=== PATIENT | female | born 1980 | race Two or more races ===

== ENCOUNTER 2021-05-25 09:24 | Outpatient (REF) | payer OTHER, SELFPAY ==
--- NOTE | ~2021-05-25 | MM_ITS ---
EXAMINATION: MM SCREENING DIGITAL BREAST TOMOSYNTHESIS, BILATERAL CLINICAL INFORMATION: Screening. Asymptomatic. Age 40. No prior mammography. No known family history breast cancer. The lifetime risk of breast cancer based on the Tyrer-Cuzick Model is 13%. COMPARISON: None (current study represents initial baseline exam). TECHNIQUE: Digital breast tomosynthesis is performed in both the craniocaudal and mediolateral oblique views along with computer-aided detection (CAD). Synthesized 2D images are generated from the tomosynthesis. FINDINGS: The breasts are extremely dense, which lowers the sensitivity of mammography (ACR BI-RADS breast composition Category d). There are no significant masses, abnormal calcifications, or other abnormalities. The axilla and skin contours are unremarkable. MM/MM tomosynthesis screening BI IMPRESSION: No mammographic evidence of malignancy. ASSESSMENT: BI-RADS 1: Negative RECOMMENDATION: Routine annual mammography screening. This patient's information was entered into a reminder system with a target due date for their next mammogram.
== END 2021-05-25 09:25 | disposition home or self-care (01) ==
LOC: HO.MAMMO 09:24
PROVIDERS: Visit Provider Nurse Practitioner Family
DX: Z12.31 Encounter for screening mammogram for malignant neoplasm of breast (principal)
CPT/HCPCS: 77063; 77067

== ENCOUNTER 2023-08-23 13:50 | Outpatient (AMB) | payer OTHER, SELFPAY ==
[2023-08-23 13:55] VITALS: BP 136/84; BMI 26.1
--- NOTE | 2023-08-23 13:55 | MHC.OFFVIS ---
Intake Vital Signs 08/23/23 13:55 Height 5 ft 8 in Weight 172 lb BMI 26.1 BP 136/84 Intake Visit Reasons: Annual Intake Note: Concerns about cancer family hx. 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 She is using 's vasectomy for control and while she is happy with that part of it she has been noticing with great detail the emotional roller coaster she goes through with the menstrual cycle and for the last 10 days before her. She feels like she snaps very easily and cries at a sad song easily and wants to stop snapping at her children as quickly. She her periods last 4 days long they are like clockwork and she can tell when she is ovulating and when she is going to start going down the down side of the roller coaster additionally she is also a keenly aware of the up side of the roller coaster after her menses. On questioning she did have a Mirena in the past and she cannot recall any negative side effects from it Her mother was just diagnosed with stage III breast cancer so she wants to get screened. She does not think she has been seen since the pandemic. [facility] Medical History (Updated 08/23/23 @ 15:08 by Ella Dong CNM) History of ganglion cyst Low back pain Depression Anxiety Surgical History (Updated 08/23/23 @ 14:12 by HEAVENLY Ghosh) History of surgical removal of ganglion cyst [place] teeth removed Family History (Updated 08/23/23 @ 14:12 by HEAVENLY Ghosh) Mother Chronic mental illness Mental health disorder Breast cancer Maternal Grandmother Chronic mental illness Maternal Aunt Mental health disorder Cervical cancer Paternal Aunt Mental health disorder Father Mental health disorder Social History Housing: House Alcohol intake: never Patient Tobacco Use Status: Former Tobacco user e-Cigarette/Vaping Use: Currently Using Second Hand Smoke Exposure: No Patient : No service: No Current occupational status: employed Current occupation: [employer] Current occupational exposures/hazards: No Gender identity: Female Cognitive needs: No Hearing needs: No Vision needs: No Female Reproductive History Menstrual Age of Menarche: 10 Duration of menses: 3-5 days Date of last menstrual period: 08/11/23 control method: permanent sterilization Permanent Sterilization: Vasectomy Total pregnancies: 2 Full term: 2 Number of Living Children: 2 Date of last pap smear: 03/02/18 (negative) Date of Mammogram: 05/25/21 Physical Exam Vital Signs: Last Vital Signs BP 136/84 08/23/23 13:55 BMI result Body Mass Index 26.1 Const General: healthy appearing, comfortable, no acute distress, well developed and alert Nutritional Appearance: average body habitus Orientation/consciousness: patient oriented x3 Limitations: no limitations HEENT Head: Yes normocephalic Neck Neck: Yes normal visual inspection Chest Chest palpation & inspection: normal inspection of the chest Breast/axilla inspection: normal inspection of the breasts and normal inspection of the axillae Breast/axilla palpation: normal palpation of the breasts and normal palpation of the axillae Resp Effort & Inspection: normal respiratory effort GI Inspection: Yes normal to inspection, No Abdominal wall edema and No distended Palpation (GI): Soft to palpation and nontender Other: External exam within normal limits vagina pink and moist cervix multiparous pink moist with nabothian cyst friable with Pap very normal a healthy appearing clear and white mucus. Uterus small midposition to anteverted nontender mobile very good tone with Kegel. General: Yes bladder normal to palpation External Female Exam: normal external appearance and normal appearance of the urethra Speculum Exam - Vagina: normal appearance of the vagina, normal palpation and normal vaginal discharge Speculum Exam - Cervix: normal appearance of the cervix, normal palpation and nontender Bimanual exam- vagina & uterus: normal bimanual exam, normal palpation, uterine size normal, bladder normal to palpation, consistency normal, normal palpation, uterine mobility normal, uterine shape normal, No Cervical tenderness present, non-tender and no cervical motion tenderness Bimanual Exam- Adnexa, other: normal adnexae, no masses, normal and No adnexal tenderness Neuro General: patient oriented x3 Assessment & Plan Assessment & Plan (1) Well woman exam with routine gynecological exam: Code(s): Z01.419 - Encounter for gynecological examination (general) (routine) without abnormal findings (2) Screening for cervical cancer: Code(s): Z12.4 - Encounter for screening for malignant neoplasm of cervix (3) Screening for breast cancer: Code(s): Z12.39 - Encounter for other screening for malignant neoplasm of breast (4) Family history of breast cancer in first degree relative: Comment: Mom was just diagnosed with stage III breast cancer. Code(s): Z80.3 - Family history of malignant neoplasm of breast (5) Menstrual changes: Code(s): N92.6 - Irregular menstruation, unspecified Plan -----Discussed in this visit the following: healthy balanced diet, regular and consistent exercise, getting recommended health screens, doing the best she can for her particular health concerns, kegel exercises, pap smear screening and followup recommendations, mammography screening and SBE, normal changes in cycles in her life stage--- .Discussed the normal menstrual cycles, in terms of length of time for each part of the cycle, range of experiences for bleeding/periods, cramping and clots and the various ways of handling all of these including the various menstrual products available today and common use of non inflammatory medications such as ibuprofen to help with the cramping, and changes in vaginal and cervical discharge that occur throughout the changes in the menstrual cycle. Also discussed what is happening in the ovaries, with preparing to ovulate, ovulation, and what happens afterward as well. Discussed signs of ovulation including fertile appearing mucus, libido changes, breast changes, ovulatory pain and twinges, and the optimal /most risky times to become . Reviewed that menstrual cycles do not obey the printed calendar, but rather follow the body's own cycle discussed what can sometimes happen if the cycle is interrupted by other health events such as anovulatory cycles. Discussed other metabolic changes that have a very profound effect on menstrual cycles including weight and the increased hormones that occur in that setting. Reviewed how the Mirena works and its affect on menstrual cycles and menses and the other common changes that women sometimes notice on mood weight another subtle cyclic changes. Reviewed that 1 of the reasons we insert the Mirena at the beginning of the menses is because of the typical physiologic changes that happen with menses that allow for the cervix to be slightly softened and open a very tiny bit which allow for more easy insertion of the Mirena. 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 Discussed problems to watch for including any severe pain, fever, feeling of expulsion. Also discussed what to do if those occur.(call here or seek urgent care) Reviewed why we leave the strings about 3-4 centimetres long, so that they will curl around the cervix otherwise the sharper tip of the strings could be palpable and be uncomfortable. Additionally when they are cut too short it is not possible to remove the IUD in the future easily. Also discussed the initial recommendations to use the Mirena IUD for contraception for up to 5 years. Some recent studies are indicating that it can be used for longer and there are current recommendations saying it can be left for longer period of time when used for contraception, up to 8 years and it can be used for 5 years when it is being used to help control abnormal bleeding. However, many women, whose periods went away for the 1st few years of having the Mirena, have reported that around 4-1/2-5 years into its use, they have noticed return of full menses, and return of ovulatory signs and symptoms midcycle. This varies from women to woman. In addition women who have had it to help control bleeding, have had amenorrhea for very many years and sometimes have opted to leave it in longer if they are still not bleeding, when they are not concerned about contraception. I recommend the she pay attention to how the effects are acting on her own body, and cycles, and always take care to be aware of this. And if she is using it for contraception, and the consequences of conceiving would be great for her, she would be millan to pay attention to this, and not depend on it, if she has a return to fertility. And if she desires replacement, she should return for replacement at the appropriate time. She is going to think about it and discuss it with her and come up with the idea of whether not she wants to live with her own bodies hormones or see if she can temper the cycle somewhat I told her that we would definitely would want to insert it with her menses. Orders: Orders Pap Smear Today Z12.4 - Encounter for screening for malignant neoplasm of cervix Bacterial Vaginosis Panel Today Z20.2 - Contact with and (suspected) exposure to infections with a predominantly sexual mode of transmission CT NG by PCR Today Z20.2 - Contact with and (suspected) exposure to infections with a predominantly sexual mode of transmission Coding Level of Care Code New Pt Prev Care 40-64y(07709) Diagnoses Well woman exam with routine gynecological exam Z01.419 Screening for cervical cancer Z12.4 Screening for breast cancer Z12.39 Family history of breast cancer in first degree relative Z80.3 Menstrual changes N92.6
== END 2023-08-23 14:51 | disposition home or self-care (01) ==
PROVIDERS: PCP Nurse Practitioner Family; Visit Provider Advanced Practice Midwife
DX: Z01.419 Encounter for gynecological examination (general) (routine) without abnormal findings (principal); Z12.4 Encounter for screening for malignant neoplasm of cervix; Z12.39 Encounter for other screening for malignant neoplasm of breast; Z80.3 Family history of malignant neoplasm of breast; N92.6 Irregular menstruation, unspecified
CPT/HCPCS: 99386; 99396

== ENCOUNTER 2023-08-23 13:50 | Outpatient (REF) | payer OTHER, SELFPAY ==
[2023-08-23 17:52] LABS: CT PCR NOT DETECTED (Not Detect.); NG PCR NOT DETECTED (Not Detect.)
[2023-08-24 12:58] LABS: BV Int Neg Control Negative (Negative); BV Int Pos Control Positive (Positive)
[2023-08-25 23:43] LABS: HPV mRNA E6/E7 rflx Not Detected (Not Detected)
== END 2023-08-23 13:51 | disposition home or self-care (01) ==
LOC: HO.LNP 13:50
PROVIDERS: PCP Nurse Practitioner Family; Visit Provider Advanced Practice Midwife
DX: Z01.419 Encounter for gynecological examination (general) (routine) without abnormal findings (principal); Z11.51 Encounter for screening for human papillomavirus (HPV); Z20.2 Contact with and (suspected) exposure to infections with a predominantly sexual mode of transmission
CPT/HCPCS: 0353U; 87480; 87510; 87624; 87660; 88142

== ENCOUNTER 2024-06-26 12:39 | Outpatient (AMB) | payer OTHER, SELFPAY ==
[2024-06-26 12:41] VITALS: BP 130/70; PULSE 73; O2SAT 98; BMI 26.8
--- NOTE | 2024-06-26 12:41 | MHC.PC.OV ---
Vital Signs 06/26/24 12:41 Height 5 ft 8 in Weight 176 lb BMI 26.8 BP 130/70 Blood Pressure Location Rt brachial Position Sitting Pulse 73 Pulse Source Pulse Oximeter Pulse Oximetry (%) 98 Oxygen Delivery Method Room Air Intake Visit Reasons: Annual PE Intake Note: pt is here for annual exam Dough Braker Required: No Accompanied by: Self / Same As Patient Allergies No Known Allergies Allergy (Verified 06/26/24 15:52) Medication List - Last Reconciled 06/26/24 by BEBETO Rodriguez diclofenac sodium 75 mg PO BID 30 days fluoxetine 40 mg PO DAILY lorazepam 0.5 mg PO DAILY PRN ondansetron HCl 4 mg PO Q8H PRN 10 days trazodone 50 mg PO BEDTIME PRN 30 days Tobacco use date assessed: 06/26/24 Dental Screening Dental Screen Date: 06/26/24 Did you have a dental visit in the last 12 months?: Yes Did you have a dental problem in the last 6 months where you did not have access to dental care?: No Was dental information given to patient?: Patient has dentist HPI Annual PE HPI Details Pt is here for a PE. 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 [facility] Medical History History of ganglion cyst Low back pain Depression Anxiety Surgical History History of surgical removal of ganglion cyst Only teeth removed Family History Mother Chronic mental illness Mental health disorder Breast cancer Maternal Grandmother Chronic mental illness Maternal Aunt Mental health disorder Cervical cancer Paternal Aunt Mental health disorder Father Mental health disorder Social History Housing: House Alcohol intake: never Patient Tobacco Use Status: Former Tobacco user e-Cigarette/Vaping Use: Currently Using Second Hand Smoke Exposure: No service: No Current occupational status: employed Current occupation: [employer] Current occupational exposures/hazards: No Gender identity: Female Cognitive needs: No Hearing needs: No Vision needs: No Female Reproductive History Menstrual Age of Menarche: 10 Questionnaire PHQ-9 Over the last 2 weeks, how often have you been bothered by any of the following problems? 70341 - PHQ-9 Billing: Patient declined-do not bill Source: Developed by Drs. Wiley He, Carissa Epstein, Joey Jimenez and colleagues, with an educational tram from [employer]. Thrive Questionnaire Date Thrive assessed: 06/26/24 I am a: Patient What is your living situation today?: I have a steady place to live Within the past 12 months, did the food you bought not last and you didn't have the money to get more?: Never true Within the past 12 months, did you worry whether your food would run out before you got money to buy more?: Never true Do you have trouble paying for medicines?: No Do you have trouble getting transportation to medical appointments?: No Do you have trouble paying your heating and electricity bill?: No Do you have trouble taking care of your child, family member or friend?: No Do you have trouble with day-to-day activities such as bathing, preparing meals, shopping, managing finances, etc.?: Yes Are you currently unemployed and looking for a job?: No Are you interested in more education?: No Please select the resources that you would like help with: None Currently or been in a relationship where the following occur: No concerns reported THRIVE Score: 0 AUDIT C Alcohol Use Questionnaire (AUDIT-C) 1. How often do you have a drink containing alcohol?: Monthly or less 2. How many drinks containing alcohol do you have on a typical day when you are drinking?: 1 or 2 3. How often do you have six or more drinks on one occasion?: Never Total Score: 1 Score Reviewed/Action Taken: Yes MAGALI-7 AMB Questionnaire MAGALI-7 Date MAGALI - 7 assessed: 06/26/24 Feeling nervous, anxious, or on edge: 2 = More than half the days Not being able to stop or control worryin = Nearly every day Worrying too much about different things: 3 = Nearly every day Trouble relaxin = More than half the days Being so restless that it is hard to sit still: 3 = Nearly every day Becoming easily annoyed or irritable: 2 = More than half the days Feeling afraid as if something awful might happen: 2 = More than half the days Total MAGALI-7 score (0-4 normal; 5-9 mild; 10-14 moderate; 15-21 severe): 17 Source: Developed by Drs. Wiley He, Carissa Epstein, Joey Jimenez and colleagues, with an educational tram from [employer]. MAGALI-7 Assessment Billing MAGALI-7 Assessment Tool: MAGALI-7 Assessment 49500 Review of Systems Const Denies chills and Denies fever(s) Eyes Denies blurry vision ENT Denies vertigo, Denies dizziness and Denies sore throat Card Denies chest pain at rest, Denies chest pain with activity, Denies diaphoresis, Denies dyspnea and Denies dyspnea on exertion Resp Denies cough, Denies dyspnea, Denies dyspnea on exertion and Denies wheezing GI Denies abdominal pain, Denies melena, Denies hematochezia, Denies constipation, Denies diarrhea and Denies loose stools Denies hematuria Musc Denies numbness and Denies tingling Skin/Breast Denies lesions Neuro Denies vertigo, Denies dizziness, Denies numbness and Denies tingling Psych Denies anxiety, Denies depression, Denies homicidal ideation, Denies suicidal ideation and Denies other (substance abuse) Aller/Immun Denies wheezing Physical exam (Primary Care) Vital Signs: Last Vital Signs Pulse 73 06/26/24 12:41 BP 130/70 06/26/24 12:41 Pulse Ox 98 06/26/24 12:41 Oxygen Delivery Method Room Air 06/26/24 12:41 BMI result Body Mass Index 26.8 Tobacco/Smoking Status: Tobacco use Status Tobacco use date assessed 06/26/24 06/26/24 12:45 Patient Tobacco Use Status Former Tobacco user 06/26/24 12:45 e-Cigarette/Vaping Use Currently Using 06/26/24 12:45 Thrive Assessment: Date of Thrive Assessment Date Thrive assessed 06/26/24 06/26/24 12:45 Currently or been in a relationship where the following occur: No concerns reported Const General: cooperative Nutritional Appearance: well nourished Orientation/consciousness: patient oriented x3 HENMT Head: Yes normal to inspection, Yes normocephalic and Yes atraumatic Ears: TM normal on the right and TM normal on the left Eyes General: appearance normal, both eyes and all related structures Alignment and Position: alignment normal and position normal Neck Neck: Yes normal visual inspection and Yes no lymphadenopathy Resp Effort & Inspection: normal respiratory effort Auscultation: clear to auscultation bilaterally Cardio Rate: regular rate Rhythm: regular rhythm Heart sounds: S1 normal heart sound present, S2 normal heart sound present and no murmurs GI Palpation (GI): Soft to palpation and nontender Auscultation: normal bowel sounds Skin Rashes: no rashes Neuro General: patient oriented x3, moves all extremities, no focal motor deficits and deep tendon reflexes 2+ bilaterally Romberg Test: Negative Extrem Right lower extremity: no edema Left lower extremity: no edema Psych Affect: normal affect Attitude: cooperative Thought process: Normal thought process present Assessment and Plan Assessment & Plan (1) Physical exam: Code(s): Z00.00 - Encounter for general adult medical examination without abnormal findings Orders: Orders Comprehensive [place]. Panel Fast Today Z00.00 - Encounter for general adult medical examination without abnormal findings TSH reflex Free T4 Today Z00.00 - Encounter for general adult medical examination without abnormal findings Lipid Panel Today Z00.00 - Encounter for general adult medical examination without abnormal findings Complete Blood Count Auto Diff Today Z00.00 - Encounter for general adult medical examination without abnormal findings UA CC w/rflx Micro + Cult Today Z00.00 - Encounter for general adult medical examination without abnormal findings MM screening mammo BI Today Z12.31 - Encounter for screening mammogram for malignant neoplasm of breast Coding Level of Care Code Est Pt Prev Care 40-64y(31864) Diagnoses Physical exam Z00.00 Additional Codes MAGALI-7 Assessment Billing - MAGALI-7 Assessment Tool: MAGALI-7 Assessment [id number] ([id number])
== END 2024-06-26 14:19 | disposition home or self-care (01) ==
PROVIDERS: PCP Nurse Practitioner Family; Visit Provider Nurse Practitioner Family
DX: Z00.00 Encounter for general adult medical examination without abnormal findings (principal)
CPT/HCPCS: 99396

== ENCOUNTER 2024-08-10 12:55 | Outpatient (REF) | payer OTHER, SELFPAY ==
--- NOTE | ~2024-08-10 | MM_ITS ---
EXAMINATION: MM SCREENING DIGITAL BREAST TOMOSYNTHESIS, BILATERAL CLINICAL INFORMATION: Encounter for screening mammogram for malignant neoplasm of breast mother recently diagnosed with breast Ca. COMPARISON: Mammography: Screening tomosynthesis 05/25/2021 TECHNIQUE: Digital breast tomosynthesis is performed in both the craniocaudal and mediolateral oblique views along with computer-aided detection (CAD). Synthesized 2D images are generated from the tomosynthesis. FINDINGS: The breasts are extremely dense, which lowers the sensitivity of mammography (ACR BI-RADS breast composition Category d). There are no significant masses, abnormal calcifications, or other abnormalities. MM/MM tomosynthesis screening BI IMPRESSION: No mammographic evidence of malignancy. ASSESSMENT: BI-RADS BI-RADS 1 - Negative RECOMMENDATION: 1. Routine annual mammogram recommended. Routine clinical follow-up as appropriate. 2. Screening breast ultrasound is recommended given dense fibroglandular tissue. The patient will receive a lay summary of the results of this breast imaging exam. Lay summaries for mammography examinations will also identify the patient's personal breast tissue composition as required by state law. Electronically signed by: Dedra Marques DO 08/10/2024 02:30 PM EDT
== END 2024-08-10 12:56 | disposition home or self-care (01) ==
LOC: HO.MAMMO 12:55
PROVIDERS: PCP Nurse Practitioner Family; Visit Provider Nurse Practitioner Family
DX: Z12.31 Encounter for screening mammogram for malignant neoplasm of breast (principal)
CPT/HCPCS: 77063; 77067

== ENCOUNTER 2024-08-22 10:05 | Outpatient (REF) | payer OTHER, SELFPAY ==
[2024-08-22 13:13] LABS: MANUAL DIFF FLAG NO
[2024-08-22 13:42] LABS: Basophils Percent Auto 0.6 % (0-2); Eosinophils Absolute Auto 0.2 X10*3/uL (0.0-0.4); Eosinophils Percent Auto 2.9 % (0-4); Hemoglobin 12.3 g/dl (12.0-16.0); Imm Gran Abs Auto 0.02 X10*3/uL (0.00-0.03); Imm Gran Pct Auto 0.3 % (0.0-0.4); Lymphocytes Absolute Auto 2.1 X10*3/uL (1.2-4.9); Mean Corpuscular HGB Conc 32.4 g/dl (31.0-35.0); Mean Corpuscular Hemoglobin 26.6 pg (27.0-33.0); Mean Corpuscular Volume 82.1 fL (80.0-98.0); Mean Platelet Volume 10.8 fL (9.4-12.3); Monocytes Absolute Auto 0.5 X10*3/uL (0.1-1.2); Monocytes Percent Auto 8.3 % (2-11); Neutrophils Absolute Auto 3.7 x10*3/uL (2.0-8.3); Neutrophils Percent Auto 55.9 % (45-73); Platelet Count 220 X10*3/uL (160-400); Red Blood Count 4.63 X10*6/uL (4.20-5.50); Red Cell Distribution Width 13.8 % (11.0-16.0); White Blood Count 6.5 X10*3/uL (4.8-10.8)
[2024-08-22 13:51] LABS: Appearance Urine Turbid; Color Urine Yellow; Glucose Urine UA Negative (Negative); Leukocyte Esterase Urine Negative (Negative); Nitrite Urine Negative (Negative); PH 5.5 (5.0-9.0); Specific Gravity - Urine 1.025 (1.005-1.025); Urine Blood Negative (Negative); Urine Ketones Negative (Negative); Urine Protein Negative (Neg-Trace)
[2024-08-22 14:18] LABS: Alanine Aminotransferase 14 U/L (0-31); Albumin Level 3.8 g/dL (3.5-5.0); Alkaline Phosphatase 47 U/L (39-117); Anion Gap 9 (12-20); Aspartate Amino Transferase 16 U/L (5-31); Bilirubin Total 0.3 mg/dL (0.0-1.0); Blood Urea Nitrogen 11 mg/dL (9-16); Calcium 8.6 mg/dL (8.4-10.2); Carbon Dioxide 25 mmol/L (22-29); Chloride 109 mmol/L (96-108); Cholesterol 174 mg/dL (<200); Estimated Glomerular Filt Rate > 60; Glucose Fasting 82 mg/dL (60-99); HDL Cholesterol 40 mg/dL (>40); LDL Cholesterol Calculated 123 mg/dL (<100); Potassium 4.1 mmol/L (3.3-5.1); Sodium 139 mmol/L (135-145); Total Protein 6.8 g/dL (6.5-8.0); Triglycerides 58 mg/dL (<150)
[2024-08-22 14:20] LABS: TSH reflex Free T4 0.38 uIU/mL (0.32-4.0)
== END 2024-08-22 10:06 | disposition home or self-care (01) ==
LOC: HO.HMGCLDS 10:05
PROVIDERS: PCP Nurse Practitioner Family; Visit Provider Nurse Practitioner Family
DX: Z00.00 Encounter for general adult medical examination without abnormal findings (principal)
CPT/HCPCS: 36415; 80053; 80061; 81003; 84443; 85025

== ENCOUNTER 2025-07-10 10:49 | Outpatient (AMB) | payer OTHER, SELFPAY ==
[2025-07-10 11:01] VITALS: BP 148/102; PULSE 102; RESP 16; O2SAT 98
--- NOTE | 2025-07-10 11:01 | A.OFFPC_ITS ---
Vital Signs 07/10/25 11:01 Weight 160 lb BP 148/102 H Respiration 16 Pulse 102 H Pulse Source Pulse Oximeter Pulse Oximetry (%) 98 Oxygen Delivery Method Room Air Intake Visit Reasons: PE Health Data Analyst Required: No Accompanied by: Self / Same As Patient Allergies No Known Allergies Allergy (Verified 06/26/24 15:52) Medication List - Last Reconciled 07/10/25 by ROMEL RodriguezP- diclofenac sodium 75 mg PO BID 30 days fluoxetine 40 mg PO DAILY lorazepam 0.5 mg PO DAILY PRN ondansetron HCl 4 mg PO Q8H PRN 10 days trazodone 50 mg PO BEDTIME PRN 30 days Tobacco use date assessed: 07/10/25 Dental Screening Dental Screen Date: 07/10/25 Did you have a dental visit in the last 12 months?: No Did you have a dental problem in the last 6 months where you did not have access to dental care?: No Was dental information given to patient?: No HPI PE HPI Details History of Present Illness The patient is a 44-year-old female presenting with anxiety and chest discomfort. She has a history of anxiety disorder, which was exacerbated by a recent verbal confrontation at work, leading to her current emotional distress. 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 The patient reports experiencing chest discomfort, which prompted the consideration of an EKG to rule out any cardiac issues. Her blood pressure was noted to be elevated during the visit. Preventative care measures were discussed, including a referral for a colonoscopy and confirmation of a scheduled mammogram. 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 Review of Systems - Cardiovascular: Reports chest discomfo rt, denies any SOB, dizziness, [place] currently - Gastrointestinal: Denies abdominal manuela n, blood in stool, constipation, diarrhea - General: Denies fever, chills - Psychiatric: Reports anxiety, denies s uicidal ideation or homicidal thoughts Physical Exam General: Cooperative, healthy appearing, comfortable, no acute distress, well developed, but observably upset and in tears Orientation: Patient oriented x3 Limitations: No limitations Head: Normal to inspection Ears: Hearing grossly normal bilaterally Nose: Normal external nose present Face and sinus: Normal facial exam Eyes: Appearance normal, both eyes and all related structures Neck: Normal visual inspection and Yes full ROM Respiratory: Normal respiratory effort and able to speak in complete sentences. Clear to auscultation bilaterally Cardiovascular: Regular rate and rhythm. Normal S1 and S2, but blood pressure is up GI: Normal to inspection. Soft to palpation and nontender Skin: No rashes or lesions noted Neuro: Patient oriented x3 Extremities: Normal to inspection Results Plan 1. Anxiety Disorder The patient is experiencing exacerbated anxiety due to a recent work-related confrontation. She has access to a therapist but declines therapy at this time. 2. Chest Discomfort The patient reports chest discomfort, prompting consideration for an EKG to rule out cardiac issues. Her blood pressure was elevated during the visit. 3. Preventative Care Preventative care measures include a referral for a colonoscopy and a scheduled mammogram. 4.HTN: will take her BP at home and sen d me values via the portal Discussion Notes During the visit, we discussed the patient's anxiety and its exacerbation due to a recent work incident. We considered an EKG to evaluate her chest discomfort and noted her elevated blood pressure. Preventative care measures, including a colonoscopy referral and a scheduled mammogram, were also addressed. Patient Instructions - Monitor blood pressure regularly and r eport any significant changes. - Follow up with scheduled mammogram and colonoscopy referral. - Consider accessing therapy services if anxiety persists. [facility] Medical History History of ganglion cyst Low back pain Depression Anxiety Surgical History History of surgical removal of ganglion cyst [place] teeth removed Family History Mother Chronic mental illness Mental health disorder Breast cancer Maternal Grandmother Chronic mental illness Maternal Aunt Mental health disorder Cervical cancer Paternal Aunt Mental health disorder Father Mental health disorder Social History Housing: House Alcohol intake: never Patient Tobacco Use Status: Current everyday Tobacco user e-Cigarette/Vaping Use: Currently Using Second Hand Smoke Exposure: No service: No Current occupational status: employed Current occupation: [employer] Current occupational exposures/hazards: No Gender identity: Female Cognitive needs: No Hearing needs: No Vision needs: No Female Reproductive History Menstrual Age of Menarche: 10 Questionnaire PHQ-9 Over the last 2 weeks, how often have you been bothered by any of the following problems? 1. Little interest or pleasure in doing things: several days 2. Feeling down, depressed, or hopeless: several days 3. Trouble falling or staying asleep, or sleeping too much: several days 4. Feeling tired or having little energy: several days 5. Poor appetite or overeating: several days 6. Feeling bad about yourself - or that you are a failure or have let yourself or your family down: several days 7. Trouble concentrating on things, such as reading the newspaper or watching television: several days 8. Moving or speaking so slowly that other people could have noticed. Or the opposite - being so fidgety or restless that you have been moving around a lot more than usual: several days 9. Thoughts that you would be better off or of hurting yourself in some way: not at all Total score: 8 Depression Screening Interpretation: Positive (declines therapist, denies any si or hi) Depression Screening Follow-up: Existing condition Depression Screening Done: Yes [id number] - PHQ-9 Billing: Yes Source: Developed by Drs. Wiley He, Carissa Epstein, Joey Jimenez and colleagues, with an educational tram from [employer]. Thrive Questionnaire Date Thrive assessed: 07/03/25 I am a: Patient What is your living situation today?: I have a steady place to live Within the past 12 months, did the food you bought not last and you didn't have the money to get more?: Never true Within the past 12 months, did you worry whether your food would run out before you got money to buy more?: Never true Do you have trouble paying for medicines?: No Do you have trouble getting transportation to medical appointments?: No Do you have trouble paying your heating and electricity bill?: No Do you have trouble taking care of your child, family member or friend?: No Do you have trouble with day-to-day activities such as bathing, preparing meals, shopping, managing finances, etc.?: No Are you currently unemployed and looking for a job?: No Are you interested in more education?: No Please select the resources that you would like help with: None Currently or been in a relationship where the following occur: No concerns reported THRIVE Score: 0 AUDIT C Alcohol Use Questionnaire (AUDIT-C) 1. How often do you have a drink containing alcohol?: Monthly or less 2. How many drinks containing alcohol do you have on a typical day when you are drinking?: 1 or 2 3. How often do you have six or more drinks on one occasion?: Never Total Score: 1 Score Reviewed/Action Taken: Yes MAGALI-7 AMB Questionnaire MAGALI-7 Date MAGALI - 7 assessed: 07/10/25 Feeling nervous, anxious, or on edge: 1 = Several days Not being able to stop or control worryin = Several days Worrying too much about different things: 1 = Several days Trouble relaxin = Several days Being so restless that it is hard to sit still: 1 = Several days Becoming easily annoyed or irritable: 1 = Several days Feeling afraid as if something awful might happen: 1 = Several days Total MAGALI-7 score (0-4 normal; 5-9 mild; 10-14 moderate; 15-21 severe): 7 Source: Developed by Drs. Wiley He, Carissa Epstein, Joey Jimenez and colleagues, with an educational tram from [employer]. MAGALI-7 Assessment Billing MAGALI-7 Assessment Tool: MAGALI-7 Assessment 78901 Physical exam (Primary Care) Vital Signs: Last Vital Signs Pulse 102 H 07/10/25 11:01 Resp 16 07/10/25 11:01 BP 148/102 H 07/10/25 11:01 Pulse Ox 98 07/10/25 11:01 Oxygen Delivery Method Room Air 07/10/25 11:01 Tobacco/Smoking Status: Tobacco use Status Tobacco use date assessed 07/10/25 07/10/25 11:04 Patient Tobacco Use Status Current everyday Tobacco 07/10/25 11:04 e-Cigarette/Vaping Use Currently Using 07/10/25 11:04 PHQ-9: PHQ-9 Score PHQ-9: Total score 8 07/10/25 11:04 Depression Screening Interpretation: Positive (declines therapist, denies any si or hi) Depression Screening Follow-up: Existing condition Thrive Assessment: Date of Thrive Assessment Date Thrive assessed 07/03/25 07/10/25 11:04 Currently or been in a relationship where the following occur: No concerns reported Coding Level of Care Code Est Pt Level 3 (83726) Est Pt Prev Care 40-64y(71455) Diagnoses Encounter for routine adult physical exam with abnormal findings Z00. Anxiety F41.9 Depression F32.9 Screening for colon cancer Z12.11 Chest discomfort R07.89 HTN (hypertension) I10 Additional Codes MAGALI-7 Assessment Billing - MAGALI-7 Assessment Tool: MAGALI-7 Assessment 13501 ([id number]) PHQ-9 - 52341 - PHQ-9 Billing: Yes ([id number]) Assessment & Plan Assessment & Plan (1) Encounter for routine adult physical exam with abnormal findings: Code(s): Z00. - Encounter for general adult medical examination with abnormal findings Category: Medical (2) Anxiety: Code(s): F41.9 - Anxiety disorder, unspecified Category: Medical (3) Depression: Code(s): F32.9 - Major depressive disorder, single episode, unspecified Category: Medical (4) Screening for colon cancer: Code(s): Z12.11 - Encounter for screening for malignant neoplasm of colon Category: Medical (5) Chest discomfort: Code(s): R07.89 - Other chest pain Category: Medical (6) HTN (hypertension): Code(s): I10 - Essential (primary) hypertension Category: Medical Plan . Orders: Orders TSH reflex Free T4 Today Z00.01 - Encounter for general adult medical examination with abnormal findings UA CC w/rflx Micro + Cult Today Z00.01 - Encounter for general adult medical examination with abnormal findings AMB EKG-In Office Today R07.89 - Other chest pain Complete Blood Count Auto Diff Today Z00.01 - Encounter for general adult medical examination with abnormal findings Comprehensive [place]. Panel Fast Today Z00.01 - Encounter for general adult medical examination with abnormal findings Lipid Panel Today Z00.01 - Encounter for general adult medical examination with abnormal findings Referrals Gastroenterology Referral Z12.11 - Encounter for screening for malignant neoplasm of colon
== END 2025-07-10 11:58 | disposition home or self-care (01) ==
LOC: HO.HMCC 10:49
PROVIDERS: PCP Nurse Practitioner Family; Visit Provider Nurse Practitioner Family
DX: Z00.01 Encounter for general adult medical examination with abnormal findings (principal); F41.9 Anxiety disorder, unspecified; R07.89 Other chest pain; F32.9 Major depressive disorder, single episode, unspecified; I10 Essential (primary) hypertension; Z12.11 Encounter for screening for malignant neoplasm of colon

== ENCOUNTER → 2025-07-10 10:49 | Outpatient (BNVA) | payer OTHER, SELFPAY | PROVIDERS: PCP Nurse Practitioner Family; Visit Provider Nurse Practitioner Family | DX: Z00.01 Encounter for general adult medical examination with abnormal findings (principal); F41.9 Anxiety disorder, unspecified; R07.9 Chest pain, unspecified; I10 Essential (primary) hypertension; F32.9 Major depressive disorder, single episode, unspecified; R07.89 Other chest pain | CPT/HCPCS: 93005; 96127 ==

== ENCOUNTER 2025-08-23 08:40 | Outpatient (REF) | payer OTHER, SELFPAY ==
--- NOTE | ~2025-08-23 | MM_ITS ---
EXAMINATION: MM SCREENING DIGITAL BREAST TOMOSYNTHESIS, BILATERAL CLINICAL INFORMATION: Screening. Asymptomatic. COMPARISON: Mammography: Comparison is made with available priors TECHNIQUE: Digital breast mammography with tomosynthesis is performed in both the craniocaudal and mediolateral oblique views along with computer-aided detection (CAD). FINDINGS: The breasts are extremely dense, which lowers the sensitivity of mammography. There are no significant masses, abnormal calcifications, or other abnormalities. MM/MM tomosynthesis screening BI IMPRESSION: No mammographic evidence of malignancy. ASSESSMENT: BI-RADS Category 1: Negative RECOMMENDATION: Routine annual mammography screening. 1 year F/U This examination should not preclude the clinical evaluation of a suspicious palpable abnormality. This patient's information was entered into a reminder system with a target due date for their next mammogram. Electronically signed by: Victorina Ash DO 08/26/2025 02:39 PM EDT
[2025-08-23 10:01] LABS: MANUAL DIFF FLAG NO
[2025-08-23 10:05] LABS: Hematocrit 41.7 % (37.0-47.0); Hemoglobin 13.5 g/dl (12.0-16.0); Imm Gran Abs Auto 0.02 X10*3/uL (0.00-0.03); Imm Gran Pct Auto 0.3 % (0.0-0.4); Lymphocytes Absolute Auto 2.0 X10*3/uL (1.2-4.9); Mean Corpuscular HGB Conc 32.4 g/dl (31.0-35.0); Mean Corpuscular Hemoglobin 25.5 pg (27.0-33.0); Mean Corpuscular Volume 78.8 fL (80.0-98.0); NRBC Abs Auto 0.000 X10*3/uL (0.0-0.012); NRBC Pct Auto 0.0 /100WBC (0.0-0.2); Platelet Count 248 X10*3/uL (160-400); Red Blood Count 5.29 X10*6/uL (4.20-5.50); White Blood Count 6.6 X10*3/uL (4.8-10.8)
[2025-08-23 12:55] LABS: Anion Gap 9 (12-20)
[2025-08-23 13:00] LABS: Alanine Aminotransferase 14 U/L (0-31); Albumin Level 4.2 g/dL (3.5-5.0); Alkaline Phosphatase 52 U/L (39-117); Aspartate Amino Transferase 16 U/L (5-31); Blood Urea Nitrogen 10 mg/dL (9-16); Calcium 8.8 mg/dL (8.4-10.2); Carbon Dioxide 24 mmol/L (22-29); Chloride 109 mmol/L (96-108); Cholesterol 170 mg/dL (<200); Estimated Glomerular Filt Rate > 60; HDL Cholesterol 43 mg/dL (>40); Potassium 4.0 mmol/L (3.3-5.1); Sodium 138 mmol/L (135-145); Total Protein 7.3 g/dL (6.5-8.0); Triglycerides 64 mg/dL (<150)
[2025-08-23 13:15] LABS: Appearance Urine Clear; Glucose Urine UA Negative (Negative); PH 7.0 (5.0-9.0); Specific Gravity - Urine 1.020 (1.005-1.025); UMIC TRIGGER UACC YES
[2025-08-23 13:36] LABS: UACC Culture Trigger YES
== END 2025-08-23 08:41 | disposition home or self-care (01) ==
LOC: HO.MAMMO 08:40
PROVIDERS: PCP Nurse Practitioner Family; Visit Provider Nurse Practitioner Family
DX: Z00.01 Encounter for general adult medical examination with abnormal findings (principal); Z12.31 Encounter for screening mammogram for malignant neoplasm of breast; Z13.6 Encounter for screening for cardiovascular disorders; Z13.29 Encounter for screening for other suspected endocrine disorder
CPT/HCPCS: 36415; 77063; 77067; 80053; 80061; 81001; 84443; 85025; 87086

== ENCOUNTER → 2025-08-23 08:45 | Outpatient (BNV) | payer OTHER, SELFPAY | PROVIDERS: PCP Nurse Practitioner Family; Visit Provider Internal Medicine | DX: Z12.31 Encounter for screening mammogram for malignant neoplasm of breast (principal) | CPT/HCPCS: 77063; 77067 ==